=== PATIENT | female | born 1940 | race Caucasian/White ===

== ENCOUNTER → 2017-07-26 | Outpatient (CLI) | payer OTHER | LOC: FIMAGING 12:50 | PROVIDERS: ATTEND Family Medicine Geriatric Medicine | DX: Z12.31 Encounter for screening mammogram for malignant neoplasm of breast (principal) | CPT/HCPCS: G0202 ==

== ENCOUNTER → 2018-08-12 | Outpatient (CLI) | payer OTHER | LOC: BHFA 09:30 | PROVIDERS: ATTEND Internal Medicine Interventional Cardiology | DX: I25.10 Atherosclerotic heart disease of native coronary artery without angina pectoris (principal); E03.9 Hypothyroidism, unspecified; E78.5 Hyperlipidemia, unspecified ==

== ENCOUNTER → 2018-09-21 | Outpatient (CLI) | payer OTHER | LOC: FIMAGING 10:39 | PROVIDERS: ATTEND Orthopaedic Surgery | DX: M17.9 Osteoarthritis of knee, unspecified (principal); Z01.818 Encounter for other preprocedural examination ==

== ENCOUNTER 2018-09-28 09:08 | Inpatient (IN) | payer OTHER ==
--- NOTE | 2018-09-28 06:26 | PDHPUP ---
History & Physical Update H&P update statement: This history and physical update is based on an assessment of the patient which was completed after admission or registration (within 24 hours), but prior to the surgery/procedure. H&P update: H&P reviewed & patient examined, no change in patient's condition since H&P completed
[~2018-09-28 09:08] MED LIST: DEXAMETHASONE 4 MG/ML VIAL ONE; LIDOCAINE 2% 100 MG/5 ML SYR ONE; ONDANSETRON 4 MG/2 ML VIAL ONE; PHENYLEPHRINE HCL 100 MCG/ML SYR ONE; PROPOFOL/EMULSION 500 MG/50 ML BOTTLE IV ONE; fentaNYL 100 MCG/2 ML INJ ONE
[2018-09-28] MEDS ORDERED: TRANEXAMIC ACID 3,000 MG/50 ML BAG IRR ONE (09:35)
[2018-09-28] MEDS ORDERED: VANCOMYCIN 1 GM VIAL ONE (09:36)
[2018-09-28] MEDS ORDERED: ceFAZolin 2 GM/DEXTROSE 100 ML IV ONE (09:38)
[2018-09-28] MEDS ORDERED: DEXAMETHASONE 4 MG/ML VIAL IVP ONE (09:38)
[2018-09-28] MEDS ORDERED: ACETAMINOPHEN 325 MG TAB PO ONE (09:38)
[2018-09-28] MEDS ORDERED: FAMOTIDINE 20 MG TAB PO ONE (09:38)
[2018-09-28] MEDS ORDERED: LR 1,000 ML IV ONE (09:39)
[2018-09-28] MEDS ORDERED: LIDOCAINE 1% 2 ML INJ ID PRN (09:39)
[2018-09-28] MEDS ORDERED: TRANEXAMIC ACID 3,000 MG in NS (SYRINGE) 50 ML IRR ONE (11:00)
[2018-09-28] MEDS ORDERED: ROPIVACAINE 0.2% 80 MG, EPINEPHrine 0.2 MG, KETOROLAC TROMETHAMINE 30 MG, morphINE 10 M... IU ONE (11:00)
[2018-09-28] MEDS ORDERED: MIDAZOLAM 2 MG/2 ML VIAL IVP ONE (11:01)
--- NOTE | 2018-09-28 11:01 | PDANEPAE ---
ANE History of Present Illness L knee DJD, here for L TKA ANE Past Medical History - Cardiovascular History Hx Hypertension: Yes Hx Coronary Artery / Peripheral Vascular Disease: Yes Hx Palpitations: Yes Cardiovascular History Comment: HYPERLIPIDEMIA. 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 HAS OCCAS LEAKAGE/INCONTINENCE - Liver History Hx Hepatic Disorders: No - Neurological & Psychiatric Hx Hx Neurological and Psychiatric Disorders: No - Cancer History Hx Cancer: No - Congenital Disorder History Hx Congenital Disorders: No - GI History Hx Gastrointestinal Disorders: No - Other Health History Other Health History: OSTEOARTHRITIS. FIBROMYALGIA/CHRONIC FATIGUE - Chronic Pain History Chronic Pain: Yes (TRISHA KNEES) - Surgical History Prior Surgeries: BREAST BX L. COLONOSCOPY ANE Review of Systems Review of Systems: - Exercise capacity METS (RN): 4 METS ANE Patient History - Allergies Allergies/Adverse Reactions: clindamycin Allergy (Verified 09/28/18 09:59) Rash sulfamethoxazole [From Bactrim] Allergy (Verified 09/28/18 09:59) Rash trimethoprim [From Bactrim] Allergy (Verified 09/28/18 09:59) Rash - Home Medications Home Medications: ALPRAZolam [Xanax 1 MG (*)] 1 mg PO HS PRN 08/22/18 [Last Taken 09/28/18 07:30] Atorvastatin Calcium [Lipitor 20 mg (*)] 20 mg PO DAILY 08/22/18 [Last Taken 11/01] Ibuprofen [Motrin (*)] 200 mg PO Q8H PRN 08/22/18 [Last Taken 09/14/18] Levothyroxine Sodium [Levoxyl] 100 mcg PO DAILY06 08/22/18 [Last Taken Unknown] - NPO status NPO Since - Liquids (Date): 09/27/18 NPO Since - Liquids (Time): 20:00 NPO Since - Solids (Date): 09/28/18 NPO Since - Solids (Time): 06:30 - Smoking Hx Smoking Status: Never smoked - Family Anes Hx Family Hx Anesthesia Complications: NEG ANE Labs/Vital Signs - Vital Signs Blood Pressure: 153/72 Heart Rate: 79 Respiratory Rate: 17 O2 Sat (%): 94 Height: 167.64 cm Weight: 69.4 kg ANE Physical Exam - Airway Neck exam: FROM, decreased ROM Mallampati Score: Class 2 Mouth exam: normal dental/mouth exam - Pulmonary Pulmonary: no respiratory distress, no rales or rhonchi - Cardiovascular Cardiovascular: regular rate and rhythym, no murmur, rub, or gallop - ASA Status ASA Status: III ANE Anesthesia Plan Anesthesia Plan: GA with mask, spinal Regional Anesthesia: single shot NB
[2018-09-28] MEDS ORDERED: MIDAZOLAM 2 MG/2 ML VIAL ONE (11:04)
[2018-09-28] MEDS ORDERED: PROPOFOL 200 MG/20 ML VIAL ONE (12:17)
--- NOTE | 2018-09-28 12:37 | POSTOPPROG ---
Post Op Note Date of Operation: 09/28/18 Surgeon: Jenn Kimball Coffee Supervisor: Neda Kimball and Vilma Rothman PA-C Anesthesiologist: Dr. Dave Anesthesia: Spinal, Other (Specify) (adductor canal block) Pre-op Diagnosis: OA of left knee Post-op Diagnosis: same Indication: left knee pain Procedure: left PKA, patellofemoral, robot assisted Findings: severe patellofemoral OA of left knee Inf/Abcess present in the surg proc area at time of surgery?: No EBL: 50-100
[2018-09-28] MEDS ORDERED: PROMETHAZINE HCL 25 MG SUPPR PR PRN (12:38)
[2018-09-28] MEDS ORDERED: ONDANSETRON 4 MG/2 ML VIAL IVP PRN (12:38)
[2018-09-28] MEDS ORDERED: diphenhydrAMINE 25 MG CAP PO PRN (12:38)
[2018-09-28] MEDS ORDERED: DIPHENOXYLATE/ATROPINE LOMOTIL 1 TAB PO PRN (12:38)
[2018-09-28] MEDS ORDERED: BISACODYL 10 MG SUPP PR PRN (12:38)
[2018-09-28] MEDS ORDERED: POLYETHYLENE GLYCOL 3350 17 GM PKT PO PRN (12:38)
[2018-09-28] MEDS ORDERED: oxyCODONE IR 5 MG TAB PO PRN (12:38)
[2018-09-28] MEDS ORDERED: PROMETHAZINE HCL 25 MG/ML INJ IVP PRN (12:38)
[2018-09-28] MEDS ORDERED: METOCLOPRAMIDE 10 MG/2 ML VIAL IVP PRN (12:38)
[2018-09-28] MEDS ORDERED: LACTULOSE 20 GM/30 ML UDCUP PO PRN (12:38)
[2018-09-28] MEDS ORDERED: ONDANSETRON DISINTEGRATING 4 MG TAB PO PRN (12:38)
[2018-09-28] MEDS ORDERED: MAGNESIUM HYDROXIDE 30 ML UDCUP PO PRN (12:38)
[2018-09-28] MEDS ORDERED: CYCLOBENZAPRINE 10 MG TAB PO PRN (12:38)
[2018-09-28] MEDS ORDERED: TEMAZEPAM 15 MG CAP PO PRN (12:38)
[2018-09-28] MEDS ORDERED: ALPRAZolam 1 MG TAB PO PRN (12:42)
[2018-09-28] MEDS ORDERED: MEPERIDINE 25 MG/0.5 ML AMP IVP PRN (12:44)
[2018-09-28] MEDS ORDERED: HYDROmorphONE/DILAUDID 2 MG/ML INJ IVP PRN (12:44)
[2018-09-28] MEDS ORDERED: LR 500 ML IV PRN (12:44)
[2018-09-28] MEDS ORDERED: NALOXONE HCL 0.4 MG/ML INJ IVP PRN (12:44)
[2018-09-28] MEDS ORDERED: DIAZEPAM 5 MG/ML 1 ML SYR IVP PRN (12:44)
--- NOTE | 2018-09-28 12:45 | POSTANESTH ---
Post Anesthetic Evaluation Cardiovascular Status: Normal, Stable Respiratory Status: Normal, Stable Level of Consciousness/Mental Status: Can Participate in Eval, Alert and Oriented Pain Control: Adequate, Prn Tx Ordered Nausea/Vomiting Control: Adequate, Prn Tx Ordered Complications Possibly Related to Anesthesia: None Noted (moving natalya LE)
[2018-09-28] MEDS ORDERED: LR 1,000 ML IV SCH (13:00)
[2018-09-28] MEDS ORDERED: fentaNYL 100 MCG/2 ML INJ ONE (13:01)
[2018-09-28] MEDS: fentaNYL 100 MCG/2 ML INJ IVP PRN ×2 (13:02→13:18)
[2018-09-28] MEDS ORDERED: DIAZEPAM 5 MG/ML 1 ML SYR ONE (13:16)
--- NOTE | 2018-09-28 15:26 | PDMN ---
Medical Necessity Medical necessity: Pt meets inpt criteria per MD order and Musculoskeletal surgery GRG. 77 y/o w/OA L knee, admitted for left PKA, patellofemoral, robot assisted. Given adv age, pt at higher risk for perioperative complications and ext recovery time.
[2018-09-28] MEDS: ACETAMINOPHEN 325 MG TAB PO SCH ×2 (18:10→23:36)
[2018-09-28] MEDS: ceFAZolin 2 GM/DEXTROSE 100 ML IV SCH (19:39)
[2018-09-28] MEDS: FAMOTIDINE 20 MG TAB PO SCH (20:09)
[2018-09-28] MEDS: SENNOSIDES/DOCUSATE SODIUM TAB PO SCH (20:09)
[2018-09-28] MEDS: ASPIRIN 81 MG CHEWABLE TAB PO SCH (20:09)
[2018-09-29] MEDS: ceFAZolin 2 GM/DEXTROSE 100 ML IV SCH (03:25)
[2018-09-29] MEDS: ACETAMINOPHEN 325 MG TAB PO SCH ×2 (05:03→11:22)
[2018-09-29] MEDS ORDERED: LEVOTHYROXINE 100 MCG TAB PO SCH (06:00)
[2018-09-29] MEDS ORDERED: ATORVASTATIN CALCIUM 20 MG TAB PO SCH (09:00)
[2018-09-29] MEDS: FAMOTIDINE 20 MG TAB PO SCH (09:53)
[2018-09-29] MEDS: ASPIRIN 81 MG CHEWABLE TAB PO SCH (09:53)
[2018-09-29] MEDS: SENNOSIDES/DOCUSATE SODIUM TAB PO SCH (09:54)
--- NOTE | 2018-09-29 10:48 | SOAPPROG ---
SOAP Progress Note Assessment/Plan: Assessment: Patient is doing well POD 1 s/p L PF partial knee arthroplasty Pain management: pain is well controlled on oral pain meds. VTE ppx: recommend aspirin 81 mg BID for 4 weeks, cont ADRIENNE and SCDs D/c planning: Patient has done better than anticipated and would like to be discharged to home today. Patient must be released from PT before discharge to home. postop urinary retention: straight cath'd yesterday, resolved today, Plan: 09/29/18 10:47 09/29/18 10:47 Subjective: patient is doing well, mild pain, denies SOB, chest pain and n/v Objective: Vital Signs Temp Pulse Resp BP Pulse Ox 36.6 C 71 14 124/58 H 92 09/29/18 07:21 09/29/18 07:21 09/29/18 07:21 09/29/18 07:21 09/29/18 07:21 Laboratory Results 09/29/18 04:28 09/29/18 04:28 09/28/18 09/29/18 09/30/18 05:59 05:59 05:59 Intake Total 2450 Output Total 2130 Balance 320 LLE: incision dressing is clean and dry, NVI, +pf/df ICD10 Worksheet Patient Problems: Problems Problem Status Onset Primary localized osteoarthritis of left knee Acute
[2018-09-29 11:13] VITALS: BP 111/49
--- NOTE | 2018-09-29 11:26 | ASMTLACE ---
LACE Length of stay for Answers: 2 days current admission Acuity / Level of Answers: Yes Care: Did the patient have an inpatient admission? Comorbidities - select Answers: Coronary Artery Disease all that apply Opioid dependence / Chronic pain Other Notes: HTN; HLD; Hypothyroid # of Emergency department Answers: 0 visits in the last 6 months Score: 12 Date Signed: 09/29/2018 11:26 AM Electronically Signed By:BRANNON Giron
--- NOTE | 2018-09-30 18:09 | GOP ---
DATE OF OPERATION: 09/28/2018 SURGEON: Tan Kimball MD FIRE CODE INSPECTOR: Neda Kimball PA-C. ANESTHESIA: Spinal. PREOPERATIVE DIAGNOSIS: Left knee osteoarthritis. POSTOPERATIVE DIAGNOSIS: Left knee osteoarthritis. PROCEDURE PERFORMED: Left patellofemoral arthroplasty with robotic assist. FINDINGS: ESTIMATED BLOOD LOSS: 30 cc. INDICATIONS: The patient is a 77-year-old female who had a severe left knee patellofemoral osteoarth ritis. Risks and benefits were explained to the patient and informed consent was obtained. DESCRIPTION OF PROCEDURE: The patient was identified in the preoperative holding area. Her left low er extremity was marked. She was then brought back to the operating room. After induction of anesth esia, a sterile tourniquet was placed on the left upper thigh. She was then prepped and draped in th e usual sterile fashion. Time-out was taken confirming patient, laterality of procedure, allergies, antibiotics status, and implant availability. We elevated the leg. Tourniquet was inflated. Made o ur medial parapatellar approach, taking care not to cut into the medial meniscus. Identified the pat kathy. This was cut freehand and measured at a size 32 asymmetric. The guide pins of the tracking we re placed on the lateral aspect of the femur. The femur was registered and confirmed with CT. We th en made adjustments to the position of the trochlear component. This was then burred with a 6 mm bur . The trials were placed. The patient was taken through a range of motion, found excellent tracking and stability. Trials were removed. The knee was copiously irrigated. We then cemented in the tri als. The knee was copiously irrigated. We then closed the knee in layers. She was placed in a ster ile dressing and awakened, brought to PACU in good condition with a well-perfused limb. PLAN: The patient to be weightbearing as tolerated. She will be admitted to the orthopedic service. /[id number]/MODL
--- NOTE | 2018-10-03 13:46 | GDS ---
ADMISSION DIAGNOSIS: Left knee osteoarthritis. DISCHARGE DIAGNOSIS: Left knee osteoarthritis. PROCEDURE: Left partial knee arthroplasty, patellofemoral compartment, robotic assisted. VTE PROPHYLAXIS: Recommend aspirin 81 mg twice a day for 4 weeks. BRIEF DESCRIPTION OF HOSPITAL STAY: Patient was admitted for an elective joint arthroplasty. The pa amos tolerated the procedure well and has passed physical therapy. The patient was given appropriat e antibiotic prophylaxis and venous thromboembolism prophylaxis. The patient's pain was well control led on oral pain medication, patient was holding down food, and had urinated. Decision was made to d ischarge the patient. The patient was given post-operative prescriptions pre-operatively. PLAN: Appointment scheduled with Dr. Kimball's office October 20 at 11 a.m. /[id number]/MODL
== END 2018-09-29 12:25 | disposition home or self-care (01) | DRG 470 ==
LOC: F3N 09:08
PROVIDERS: ADMIT Orthopaedic Surgery; ATTEND Orthopaedic Surgery
DX: M17.12 Unilateral primary osteoarthritis, left knee (principal); I10 Essential (primary) hypertension; E78.5 Hyperlipidemia, unspecified; E03.9 Hypothyroidism, unspecified; I25.10 Atherosclerotic heart disease of native coronary artery without angina pectoris
CPT/HCPCS: 97161-GP; C1713; J0171; J0690; J1100; J1885; J2001; J2250; J2270; J2370; J2405; J2704; J2795; J3010; J3360; J3370